=== PATIENT | male | born 1980 | race African-American/Black ===

== ENCOUNTER 2020-05-23 08:00 | Outpatient (CLI) | payer SELFPAY | END 2020-05-23 17:00 | disposition home or self-care (01) | LOC: CSHWCC 08:00 | PROVIDERS: ATTEND Nurse Practitioner Family | DX: S82.821D Torus fracture of lower end of right fibula, subsequent encounter for fracture with routine healing (principal); R60.0 Localized edema; L03.115 Cellulitis of right lower limb; W31.89XD Contact with other specified machinery, subsequent encounter; I10 Essential (primary) hypertension | CPT/HCPCS: 11042; 11045; 29581 ==

== ENCOUNTER 2020-06-13 11:11 | Outpatient (CLI) | payer SELFPAY | END 2020-06-13 11:12 | disposition home or self-care (01) | LOC: CSHWCC 11:11 | PROVIDERS: ATTEND Nurse Practitioner Family | DX: S81.801D Unspecified open wound, right lower leg, subsequent encounter (principal); L03.115 Cellulitis of right lower limb; R60.0 Localized edema; I10 Essential (primary) hypertension; W31.89XD Contact with other specified machinery, subsequent encounter | CPT/HCPCS: 29581; 99213; G0463 ==

== ENCOUNTER 2020-07-04 12:24 | Outpatient (CLI) | payer SELFPAY | END 2020-07-04 12:25 | disposition home or self-care (01) | LOC: CSHWCC 12:24 | PROVIDERS: ATTEND Nurse Practitioner Family | DX: S81.801D Unspecified open wound, right lower leg, subsequent encounter (principal); R60.0 Localized edema; L03.115 Cellulitis of right lower limb; I10 Essential (primary) hypertension; W31.89XD Contact with other specified machinery, subsequent encounter | CPT/HCPCS: 29581; 99213; G0463 ==

== ENCOUNTER 2020-07-18 12:13 | Outpatient (CLI) | payer SELFPAY | END 2020-07-18 12:14 | disposition home or self-care (01) | LOC: CSHWCC 12:13 | PROVIDERS: ATTEND Nurse Practitioner Family | DX: S81.801A Unspecified open wound, right lower leg, initial encounter (principal); R60.0 Localized edema; I10 Essential (primary) hypertension; L03.115 Cellulitis of right lower limb; S82.821A Torus fracture of lower end of right fibula, initial encounter for closed fracture; W31.89XA Contact with other specified machinery, initial encounter | CPT/HCPCS: 99213; G0463 ==

== ENCOUNTER 2020-08-01 09:06 | Outpatient (CLI) | payer SELFPAY | END 2020-08-01 09:07 | disposition home or self-care (01) | LOC: CSHWCC 09:06 | PROVIDERS: ATTEND Nurse Practitioner Family | DX: S82.821D Torus fracture of lower end of right fibula, subsequent encounter for fracture with routine healing (principal); S81.801D Unspecified open wound, right lower leg, subsequent encounter; L03.115 Cellulitis of right lower limb; R60.0 Localized edema; I10 Essential (primary) hypertension; W31.89XD Contact with other specified machinery, subsequent encounter ==